=== PATIENT | male | born 1980 | race Caucasian/White ===

== ENCOUNTER 2016-09-26 09:30 | Emergency (ER) | payer MEDICAID ==
[~2016-09-26] VITALS: Ht 190.5 cm; Wt 117.9 kg
[2016-09-26 10:10] VITALS: BP 124/83
== END 2016-09-26 11:07 | disposition home or self-care (01) ==
LOC: ER 09:30
DX: M17.12 Unilateral primary osteoarthritis, left knee (principal)
CPT/HCPCS: 73700